=== PATIENT | female | born 1970 | race Hispanic/Latino ===

== ENCOUNTER 2025-01-28 09:07 | Emergency (ER) | payer OTHER ==
[~2025-01-28] VITALS: Ht 162.6 cm; Wt 77.1 kg
[~2025-01-28 09:07] MED LIST: BIOTIN2500 MCG PO; SHARK FIN CART500 MG PO
[2025-01-28 09:10] VITALS: PULSE 84; RESP 17; TEMP 98.1; O2SAT 100
== END 2025-01-28 09:40 | disposition home or self-care (01) ==
LOC: ER 09:24
DX: M25.512 Pain in left shoulder (principal); M54.12 Radiculopathy, cervical region; X50.0XXA Overexertion from strenuous movement or load, initial encounter; Y92.89 Other specified places as the place of occurrence of the external cause; F41.9 Anxiety disorder, unspecified; M19.09 Primary osteoarthritis, other specified site
CPT/HCPCS: 99282